=== PATIENT | female | born 1975 | race Caucasian/White ===

== ENCOUNTER 2019-01-17 05:51 | Observation (INO) | payer OTHER ==
[2019-01-17] VITALS (35 sets, daily range): BP systolic 137–164; BP diastolic 68–99; PULSE 73–110; RESP 10–21; Ht 162.6 cm; Wt 71.9 kg
[~2019-01-17] VITALS: Ht 162.6 cm; Wt 71.9 kg
[2019-01-17] MEDS ORDERED: CEFAZOLIN 1 GM INJ ONE (07:00)
[2019-01-17] MEDS ORDERED: GLYCOPYRROLATE 0.4 MG INJ ONE (07:00)
[2019-01-17] MEDS ORDERED: NEOSTIGMINE 3 MG/3 ML SYRINGE ONE (07:00)
[2019-01-17] MEDS ORDERED: FLUO40CA10 PO (07:05)
[2019-01-17] MEDS ORDERED: GABA300C16 PO (07:07)
[2019-01-17] MEDS ORDERED: LORA0.5T PO (07:07)
[2019-01-17] MEDS ORDERED: GENTAMICIN 80 MG INJ ONE (07:10)
[2019-01-17] MEDS ORDERED: SODIUM CL BACTERIOSTATIC 30 ML INJ ONE (07:10)
[2019-01-17] MEDS ORDERED: POLYMYXIN/BACITRACIN 1L IRRIG ONE (07:10)
--- NOTE | 2019-01-17 07:16 | PREAC ---
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 not on B-Edinson Reported Medications Lorazepam* (Lorazepam*) 0.5 Mg Tablet, 0.5 MG PO HS PRN for ANXIETY, TAB 01/17/19 Gabapentin* (Gabapentin*) 300 Mg Capsule, 300 MG PO QHS, #60 CAP 01/17/19 Fluoxetine Hcl* (Prozac*) 40 Mg Capsule, 50 MG PO DAILY, CAP PT TAKE A 40MG AND A 10MG TOGETHER 01/17/19 Meds reviewed: Yes Allergies Coded Allergies: No Known Allergy (Unverified , 01/17/19) Allergies Reviewed: Yes Labs/Studies Labs Reviewed: Reviewed by anesthesiologist test: Negative Studies: ECG, CXR Pre-procedure Exam Airway: Adequate mouth opening, Adequate thyromental dist Mallampati: Mallampati II Teeth: Normal Lung: Normal Heart: Normal ASA Physical Status ASA physical status: 2 Emergency: None Planned Anesthetic General/MAC: LMA Planned Pain Management Parenteral pain med Pre-operative Attestations Prior to commencing anesthesia and surgery, the patient was re-evaluated, there was verification of: *The patient's identity *The results of appropriate recent lab work and preoperative vital signs *The above evaluation not changing prior to induction *Anesthetic plan, risk benefits, alternative and complications discussed with patient/family; questions answered; patient/family understands, accepts and wishes to proceed. KEVON DOMINGUEZ MD Jan 17, 2019 07:16
[2019-01-17] MEDS ORDERED: BUPIVACAINE 0.25%/EPI (SDV) 30 ML INJ ONE (07:31)
[2019-01-17] MEDS ORDERED: PROPOFOL 20 ML ONE ×2 (07:34→08:11)
[2019-01-17] MEDS ORDERED: LIDOCAINE 2% (SDV) 5 ML INJ ONE (07:34)
[2019-01-17] MEDS ORDERED: MIDAZOLAM 1 MG/ML 2 ML INJ ONE (07:35)
--- NOTE | 2019-01-17 07:39 | HPN ---
Date/Time of Note Date/Time of Note DATE: 01/17/19 TIME: 07:39 Interval H&P Admission Note Pt. seen H&P reviewed: No system changes EFRAIN RUSS MD Jan 17, 2019 07:39
--- NOTE | 2019-01-17 07:51 | HPN ---
Date/Time of Note Date/Time of Note DATE: 01/17/19 TIME: 07:51 Interval H&P Admission Note Pt. seen H&P reviewed: No system changes KARYN VELASQUEZ MD Jan 17, 2019 07:51
[2019-01-17] MEDS ORDERED: BUPIVACAINE LIPOSOME/PF 266 MG/20 ML VIAL INFIL SCH (08:00)
[2019-01-17] MEDS ORDERED: ISOSULFAN BLUE 1% 5 ML INJ SC ONE (08:05)
[2019-01-17] MEDS ORDERED: ONDANSETRON 4 MG INJ ONE (08:09)
[2019-01-17] MEDS ORDERED: DEXAMETHASONE 4 MG/ML 5 ML INJ ONE (08:09)
[2019-01-17] MEDS ORDERED: FAMOTIDINE 20 MG INJ ONE (08:09)
[2019-01-17] MEDS ORDERED: EPHEDrine 25 MG/5 ML SYG ONE (08:25)
[2019-01-17] MEDS ORDERED: HYDROmorphONE 2 MG/ML SYG ONE (09:22)
[2019-01-17] MEDS ORDERED: ROCURONIUM 50 MG INJ ONE (11:00)
[2019-01-17] MEDS ORDERED: HYDROmorphONE 1 MG/5 ML IV SYRINGE IV PRN ×3 (11:30)
[2019-01-17] MEDS ORDERED: OXYCODONE/ACETAMINOPHEN (5/325) TAB PO PRN (11:30)
[2019-01-17] MEDS ORDERED: PROCHLORPERAZINE 10 MG INJ IV PRN (11:30)
[2019-01-17] MEDS ORDERED: FENTAnyl 50 MCG/ML VIAL IV PRN ×3 (11:30)
[2019-01-17] MEDS ORDERED: MEPERIDINE 25 MG INJ IV PRN (11:30)
[2019-01-17] MEDS ORDERED: ONDANSETRON 4 MG INJ IV PRN (11:30)
[2019-01-17] MEDS ORDERED: DIPHENHYDRAMINE 50 MG INJ IV PRN (11:30)
--- NOTE | 2019-01-17 11:45 | OPR ---
Date/Time of Note Date/Time of Note DATE: 01/17/19 TIME: 11:37 Operative Report Free Text/Dictation Preoperative Diagnosis: Right breast DCIS. Postoperative Diagnosis: Same Operation/Procedure Performed: 1. Bilateral mastectomy 2. Right axillary sentinel lymph node biopsy, prelim frozen negative per pathology. Surgeon: Karyn Velasquez MD Principal Planner: Jennifer Silverio NP Anesthesia Type: general Estimated Blood Loss: Less than 50 ml's Transfusion: None Specimen: 1. Right axillary sentinel lymph node 2. Bilateral breasts with suture lateral Grafts/Implants: Done by Dr. Hawk Tubes/Drains: Placed by Dr. Hawk Complications: None Pt Condition Post Procedure: Stable Disposition: PACU Indications: Patient was diagnosed on radiographic and eventual biopsy to have right breast DCIS. We had long discussion with her for breast conservation therapy which includes lumpectomy and radiation versus mastectomy. We also had discussion about reconstruction through plastic surgeon. Discussion with oncology they wanted to have a right sentinel lymph node biopsy done. Patient has family history of breast cancer. Patient has opted for bilateral mastectomy with reconstruction and right sentinel lymph node biopsy. Risks include but are not limited to bleeding, infection, abscess, seroma, leak, damage to surrounding tissues, chronic pain, need for re-operations or further surgeries, CO, stroke, PE, DVT, pneumonia, organ failures, or even . There is also risk of recurrence or metastasis. Patient and family fully understands like to proceed with surgery. Procedure Description: Patient was brought and placed supine on the operating table. SCDs were placed. Preoperative antibiotics administered. After induction of anesthesia she was prepped and draped usual sterile fashion and timeout was performed. Initially I started on the left breast. The breast were marked by plastics, Dr. Hawk. Elliptical incision was made around the nipple and the incision was extended sharply into the subcutaneous tissue. Tissue planes were created in all 4 quadrants. Superiorly to the clavicle medially to the sternum inferior to the inferior mammary fold and laterally to the lateral edge of the pectus and using electrocautery the breast tissue was excised off of the skin making sure not to injure the skin. This point the breast tissue was excised with electrocautery off of the pectus all the way to the axillary tail and the axillary tail was followed into the axilla. Suture was placed laterally. Lymphazurin was injected into the right upper outer breast into the breast tiss ue that would be excised and this was massaged. Elliptical incision was made around the nipple and the incision was extended sharply into the subcutaneous tissue. Tissue planes were created in all 4 quadrants. Superiorly to the clavicle medially to the sternum inferior to the inferior mammary fold and laterally to the lateral edge of the pectus and using electrocautery the breast tissue was excised off of the skin making sure not to injure the skin. This point the breast tissue was excised with electrocautery off of the pectus all the way to the axillary tail and the axillary tail was followed into the axilla. The axilla was dissected gently and blue coloring was followed into the first lymph node. Lymph node was sequentially clamped tied and clipped and fully excised and sent to pathologist for evaluation. Prelim frozen section identifies no malignancy within the lymph node. Both chest wounds were irrigated with warm water to clear suctioning fluid. Complete hemostasis was obtained. Dr. Hawk took over to perform the reconstruction. All counts were correct by determination of my portion of the procedure. KARYN VELASQUEZ MD Jan 17, 2019 11:45
--- NOTE | 2019-01-17 12:02 | OPR ---
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 The risks, benefits, and alternatives of performing this procedure were discussed with the patient including the risks of bleeding, infection, wound healing problems, table saw operator extrusion, pain and tightness, need for removal. We discussed that if radiation is involved, it may alter the outcome. The risk of asymmetry and need for revision surgery were also discussed. The patient states that she understands these risks and would like to proceed with the procedure. All questions were answered, no guarantees were given with regards the outcome of this procedure. Description of procedure: The patient was brought to the operating room at [facility] where general anesthesia was induced, and the patient was prepped and draped in the usual sterile fashion. The mastectomy was performed by Dr. Woodson and will be dictated separately. At the completion of that portion of the case, I scrubbed into the case, and irrigated the left breast with extensive antibiotic irrigation to remove all loose fat particles. Next, meticulous hemostasis was achieved with the bipolar cautery. An additional round of irrigation and hemostasis was carried out. The skin flaps seemed appropriate. The lateral dissection was appropriate. The medial dissection has crossed over the sternum and there was tissue that had been removed from the medial aspect overlying the sternum. This is not able to be reconstructed at this stage of the procedure and will need to be fat grafted in the future. Next, the breast was inspected, and a piece of AlloDerm contour medium was opened, rinsed in normal saline to remove the preservative, and was anchored in place medially, inferiorly, and laterally to re-create the lower border of the breast with 2-0 Vicryl suture. Next, the cautery was used to enter the lateral border of the subpectoral space, and then the pectoralis muscle was elevated from lateral to medial on its inferior surface, and was released inferiorly. The base width was then measured and was found to be approximately 12cm. Hemostasis was achieved with the electrocautery and the breast was irrigated with antibiotic irrigation. A moist lap was placed over the breast. The right breast was then inspected and was irrigated with extensive antibiotic irrigation to remove all loose fat particles. Next, meticulous hemostasis was achieved with the bipolar cautery. An additional round of irrigation and hemostasis was carried out. The skin flaps seemed appropriate. The lateral dissection was displaced laterally into the axilla. The medial dissection was appropriate. In order to close space, multiple 0 Vicryl sutures were used to tack the lateral skin flap back onto the chest wall. A piece of AlloDerm contour medium was opened, rinsed in normal saline to remove the preservative, and was anchored in place medially, inferiorly, and laterally to re-create the lower border of the breast with 2-0 Vicryl suture. Next, the cautery was used to enter the lateral border of the subpectoral space, and then the pectoralis muscle was elevated from lateral to medial on its inferior surface, and was released inferiorly. The base width was then measured and was found to be approximately 12cm. Hemostasis was achieved with the electrocautery and the breast was irrigated with antibiotic irrigation. 60c of dilute exparel solution was injected throughout the breasts to help with post operative analgesia. An Allergan [id number] tissue table saw operator was opened, rinsed in antibiotic irrigation, the air was evacuated, and then gloves were changed and this was inserted into the each breast and was sutured in place with 2-0 Vicryl suture. Next, a total of 60 cc of sterile saline was injected into the expanders. Finally, the pe ctoralis muscle was anchored to the AlloDerm with 2-0 vicryl suture bilaterally, and then an additional round of hemostasis and irrigation was carried out. 2 x 15 Senthil drains were inserted through stab incisions in each axilla and were secured in place with 2-0 nylon suture. The breasts were then closed with 3-0 Vicryl suture and 4-0 Monocryl suture and was dressed with Dermabond. An additional 180cc of saline was injected into each table saw operator for a total of 240cc. The breasts were dressed with the prevena incision care system. the patient tolerated this procedure well, there were no complications, she will remain tonight. AMAN Savage assisted with this procedure Preoperative Diagnosis right breast DCIS Postoperative Diagnosis same Operation/Procedure Performed bilateral breast tissue table saw operator reconstruction with alloderm Surgeon see signature line [facility] AMAN savage Anesthesia Type: general Estimated Blood Loss: minimal Transfusion none Specimen none Grafts/Implants bilateral breast tissue expanders and alloderm Tubes/Drains MARICARMEN drains bilateral breasts Complications none Pt Condition Post Procedure: stable Procedure Description see dictation EFRAIN RUSS MD Jan 17, 2019 12:02
[2019-01-17] MEDS ORDERED: hydrALAzine 20 MG INJ IV PRN (12:30)
[2019-01-17] MEDS ORDERED: LABETALOL HCL 20MG INJ IV PRN (12:30)
--- NOTE | 2019-01-17 12:49 | PAC ---
Date/Time of Note Date/Time of Note DATE: 01/17/19 TIME: 12:49 Post-Anesthesia Notes Post-Anesthesia Note Last documented vital signs Vital Signs Date Temp Pulse Resp B/P (MAP) Pulse Ox O2 O2 Flow FiO2 Time Delivery Rate 01/17/19 98.1 73 17 150/80 99 Room Air 07:25 (103) Activity: WNL Respiratory function: WNL Cardiovascular function: WNL Mental status: Baseline Pain reasonably controlled: Yes Hydration appropriate: Yes Nausea/Vomiting absent: Yes Comments BP: 140/81 HR: 99 RR: 15 T: 97.9 SaO2: 99% KEVON DOMINGUEZ MD Jan 17, 2019 12:49
[2019-01-17] MEDS: LACTATED RINGER'S 1,000 ML IV SCH ×2 (14:09→17:39)
[2019-01-17] MEDS: HYDROCODONE/APAP (5/325) TAB PO PRN ×2 (15:24→20:05)
[2019-01-17] MEDS: HYDROmorphONE 0.5 MG/0.5 ML SYG IV PRN ×2 (18:16→22:17)
[2019-01-17] MEDS: ONDANSETRON 4 MG INJ IV PRN (18:16)
[2019-01-18] MEDS: LACTATED RINGER'S 1,000 ML IV SCH (00:14)
[2019-01-18] MEDS: HYDROCODONE/APAP (5/325) TAB PO PRN ×3 (00:14→10:55)
[2019-01-18 00:15] VITALS: BP 142/79; PULSE 75; RESP 18
[2019-01-18] MEDS: ONDANSETRON 4 MG INJ IV PRN ×2 (00:18→06:47)
[2019-01-18] MEDS: HYDROmorphONE 0.5 MG/0.5 ML SYG IV PRN ×2 (02:14→07:48)
[2019-01-18 08:03] VITALS: BP 168/82; PULSE 74; RESP 18
--- NOTE | 2019-01-18 08:10 | DS ---
Date/Time of Note Date/Time of Note DATE: 01/18/19 TIME: 08:09 Discharge Summary Admission/Discharge Info Admit Date/Time Jan 17, 2019 at 07:39 Discharge Date/Time right breast DCIS Discharge Diagnosis right breast DCIS Patient Condition: Good Hospital Course uncomplicated Home Meds Reported Medications Lorazepam* (Lorazepam*) 0.5 Mg Tablet, 0.5 MG PO HS PRN for ANXIETY, TAB 01/17/19 Gabapentin* (Gabapentin*) 300 Mg Capsule, 300 MG PO QHS, #60 CAP 01/17/19 Fluoxetine Hcl* (Prozac*) 40 Mg Capsule, 50 MG PO DAILY, CAP PT TAKE A 40MG AND A 10MG TOGETHER 01/17/19 Follow-up Plan dr montoya, dr talbert Primary Care Provider Not On Staff Doctor Time spent on discharge: < 30 minutes Pending Labs Laboratory Tests Test 01/18/19 06:51 Lab Scanned Report REFER[facility] LAB [id number] EFRAIN MONTOYA MD Jan 18, 2019 08:10
--- NOTE | 2019-01-18 08:11 | PN ---
Date/Time of Note Date/Time of Note DATE: 01/18/19 TIME: 08:10 Assessment/Plan Lines/Catheters IV Catheter Type (from Nrsg): Peripheral IV Haddad in Place (from Nrsg): No Assessment/Plan Chief Complaint/Hosp Course uncomplicated Assessment/Plan doing well disharge to home today has RX and instructions high BP likely related to anxiety as patient has no history of HTN Subjective 24 Hr Interval Summary no acute events overnight. pain controlled on current regimen Exam/Review of Systems Vital Signs Vitals Vital Signs Date Temp Pulse Resp B/P (MAP) Pulse Ox O2 O2 Flow FiO2 Time Delivery Rate 01/18/19 98.0 74 18 168/82 99 Room Air 08:03 (110) 01/17/19 2.0 12:13 Intake and Output 01/17/19 01/17/19 01/18/19 1515:00 23:00 07:00 IntakeIntake Total 1700 ml 840 ml 1350 ml OutputOutput Total 290 ml 145 ml 750 ml BalanceBalance 1410 ml 695 ml 600 ml Exam Free Text/Dictation NAD breast dressing in place. no hematoma. MARICARMEN with SS output EFRAIN RUSS MD Jan 18, 2019 08:11
--- NOTE | 2019-01-18 10:47 | PN ---
Date/Time of Note Date/Time of Note DATE: 01/18/19 TIME: 10:40 Assessment/Plan Lines/Catheters IV Catheter Type (from Nrsg): Peripheral IV Haddad in Place (from Nrsg): No Assessment/Plan Chief Complaint/Hosp Course 1. Right breast DCIS status post bilateral mastectomy, right axillary sentinel lymph node biopsy by Dr. 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 Hawk 01/18/19 -IS -ambulate -advance diet as tolerated -Pain management -Postop care per plastic surgery -To follow with us as outpatient in 1 week -Follow-up oncology 2. Overweight BMI: -diet and exercise optimization -encourage weight loss 3. Allergic rhinitis history: -Medical management 4. Anxiety history: -Supportive Thank you. Patient seen and examined in collaboration with Dr. Lamin Woodson. Subjective 24 Hr Interval Summary Feels well. Soreness in bilateral breasts. No fevers, chills, sob, congested cough, cp, palpitations, ornelas, dizziness, nausea, vomiting, diarrhea, dysuria, arm numbness/tingling/change in sensation or movement. Exam/Review of Systems Vital Signs Vitals Vital Signs Date Temp Pulse Resp B/P (MAP) Pulse Ox O2 O2 Flow FiO2 Time Delivery Rate 01/18/19 98.0 74 18 168/82 99 Room Air 08:03 (110) 01/17/19 2.0 12:13 Intake and Output 01/17/19 01/17/19 01/18/19 1515:00 23:00 07:00 IntakeIntake Total 1700 ml 840 ml 1350 ml OutputOutput Total 290 ml 145 ml 750 ml BalanceBalance 1410 ml 695 ml 600 ml Exam Constitutional: alert, oriented, well developed Psych: nl mood/affect; No anxiety Head: normocephalic, atraumatic Eyes: nl conjunctiva, EOMI, nl lids, nl sclera ENMT: nl external ears & nose, nl lips & teeth, nl nasal mucosa & septum, mucosa pink and moist Neck: supple, non-tender Respiratory: normal air movement; No congested cough Cardiovascular: regular rate and rhythm, nl pulses Gastrointestinal: soft, non-tender Musculoskeletal: nl extremities to inspection, nl gait and stance Extremities: normal pulses Neurological: nl mental status, nl speech, nl strength Skin: other (Bilateral breast: No bleeding, induration, bruising, discoloration); No rash or lesions Lymph: nl lymph nodes WILLIAM MONTANA NP Jan 18, 2019 10:47
== END 2019-01-18 13:53 | disposition home or self-care (01) ==
LOC: SDS 05:51 → REC 07:39 → MS1 13:32
PROVIDERS: ADMIT Surgery Plastic and Reconstructive Surgery; ATTEND Surgery Plastic and Reconstructive Surgery
DX: D05.11 Intraductal carcinoma in situ of right breast (principal); Z17.0 Estrogen receptor positive status [ER+]; D24.1 Benign neoplasm of right breast; N60.91 Unspecified benign mammary dysplasia of right breast; D24.2 Benign neoplasm of left breast; N60.12 Diffuse cystic mastopathy of left breast; N60.92 Unspecified benign mammary dysplasia of left breast; E66.3 Overweight; Z68.27 Body mass index [BMI] 27.0-27.9, adult
CPT/HCPCS: 19303; 19357; 38525; 38900; 88307; 88331; C1762; C1789; C9290; G0378; J0360; J0690; J1100; J1170; J1580; J2250; J2405; J2710; J3010; J7120; Q9968